=== PATIENT | male | born 1975 | race African-American/Black ===

== ENCOUNTER 2017-10-01 16:48 | Emergency (ER) | payer SELFPAY ==
[~2017-10-01 16:48] MED LIST: FLEXERIL10 MG PO; TRAMADOL50 MG PO
[2017-10-02] MEDS ORDERED: CLEOCIN HCL300 M1 PO (18:20)
[2017-10-02] MEDS ORDERED: POLYTRIM EYE DR10 ML OPH (18:20)
== END 2017-10-01 16:50 | disposition admitted as inpatient to this hospital (09) ==
LOC: ERH 16:48
DX: H57.10 Ocular pain, unspecified eye (principal)
CPT/HCPCS: J1885

== ENCOUNTER 2017-10-02 15:34 | Emergency (ER) | payer OTHER ==
[~2017-10-02] VITALS: Ht 185.4 cm; Wt 97.5 kg
--- NOTE | 2017-10-02 16:00 | ED EYE COMPLAINT ---
History of Present Illness General Chief Complaint: Eye Problems Stated Complaint: L EYE IRRITATION Source: patient Exam Limitations: no limitations Vital Signs & Intake/Output Vital Signs & Intake/Output Vital Signs Date Time Temp Pulse Resp B/P B/P Pulse O2 O2 Flow FiO2 Mean Ox Delivery Rate 10/02 1814 99.1 62 16 150/92 99 Room Air 10/02 1537 97.7 100 16 150/89 97 Room Air Allergies Coded Allergies: NO KNOWN ALLERGIES (12/02/12) Reconcile Medications Clindamycin HCl (Cleocin HCl) 300 MG CAPSULE 1 CAP PO TID PRESEPTAL CELLULITIS CYCLOBENZAPRINE HCL (Flexeril) 10 MG TABLET 1 TAB PO Q8H PRN spasm/pain Avoid operating motor vehicle or heavy machinery Polytrim (Polytrim Eye Drops) 10,000 UNIT-1 MG/ML DROPS 1 GTT OPH Q6 CORNEAL ABRASION TRAMADOL HCL (Tramadol) 50 MG TABLET 1-2 TAB PO Q6P PRN PAIN Triage Note: PT STATES HIS LEFT EYE IT ITCHY AND IS DRAINING PT STATES WHEN HE WAKES IN THE AM HIS EYE IS CRUSTED SHUT. Triage Nurses Notes Reviewed? yes Onset: Gradual Duration: week(s): (1) Timing: no prior history Injury Environment: home Severity: severe Severity Numbers: 9 No Modifying Factors: none Left Eye Associated Symptoms: sensitivity to light, eyelid matting, blurred vision HPI: Patient is a 42-year-old male with no past medical history presenting to the emergency department complaining of left eye redness, pain and discharged has been getting worse for the past one week. He went to the urgent care 4 days ago , diagnosed with conjunctivitis. He was started on erythromycin ointment which worsened symptoms. Patient denies any fevers or chills. Patient does admit to pain when he moves his eye. Positive light sensitivity. No history of similar symptoms in the past. he reports that he's had blurred vision. Denies foreign body sensation. He usually wears glasses to drive and read but has not been using them. Past History Travel History Traveled to [place] past 21 day No Medical History Any Pertinent Medical History? see below for history Neurological: migraine Cardiovascular: hypertension Surgical History Surgical History: non-contributory Psychosocial History What is your primary language Uzbek Tobacco Use: Current Daily Use Daily Tobacco Use Amount/Type: => 5 Cigarettes daily ETOH Use: occasional use Illicit Drug Use: marijuana Family History Hx Contributory? No Review of Systems Review of Systems Constitutional: Reports: no symptoms. Comments Review of systems: See HPI, All other systems negative. Constitutional, no chills fever or weight loss HEENT: no sore throat no congestion Cardiovascular: No chest pain ,palpitation Skin, no jaundice no rashes Respiratory: No dyspnea cough sputum or hemoptysis GI: No nausea no vomiting Muscle skeletal: no back pain, no neck pain, Neurologic: No numbness no confusion Psych: No stress anxiety Immunology: No splenectomy or history of AIDS Physical Exam General Appearance: well developed/nourished, no apparent distress, alert, awake , comfortable General Inspection: periorbital swelling Conjunctiva/Sclera: injected Cornea: examined w/fluorescein EOM: PAIN WITH EXTRAOCULAR EYE MOVEMENTS OF THE LEFT EYE Pupil: normal accommodation, normal pupil, PERRL Anterior Chamber: normal inspection Eye Left 1) diffuse Erythema. No signs of hyphema. General Inspection: normal inspection Eyelid: normal inspection Conjunctiva/Sclera: normal inspection EOM: intact Pupil: normal accommodation, normal pupil, PERRL Anterior Chamber: normal inspection Physical Exam Head: atraumatic Comments: Well-developed well-nourished person in no acute distress HEENT: Pain in the left eye with extraocular eye movements, no nystagmus. Pupils equally round and reactive to light and accommodation. Left conjunctiva is extremely injected. Mattering noted in the eyelashes of the upper and lower eyelid. Mild edema noted in the left upper and lower eyelid. Large corneal abrasion approximately 2 cm in the central aspect of the cornea, aluminated with forcing stain. No signs of ulceration. Unable to appreciate erythema although somewhat difficult secondary to darker skin tone. Nose is atraumatic. External auditory canal and Tympanic membranes clear. Pharynx normal. No swelling or edema. Funduscopic: Somewhat limited secondary to no dilation- no obvious retinal detachment or venous thinking. Neck: Normal inspection Cardiovascular: Regular rate and rhythms no murmurs rubs or gallops, normal JVP Respiratory: No respiratory distress.breath sounds clear to auscultation bilaterally Extremity: No edema Neuro: Alert oriented x3, motor sensory normal, slightly decrease in peripheral mcbride with the left eye secondary to tearing. Skin: No appreciable rash on exposed skin, skin is warm and dry. Psych: Mood and affect is normal, memory and judgment is normal. Progress Differential Diagnosis: corneal abrasion, corneal foreign body, conjunctivitis, ORBITAL CELLULITIS, PERIORBITAL CELLULITIS, CONJUNCTIVITIS, CORNEAL ABRASION, GLAUCOMA, CORNEAL FOREIGN BODY Plan of Care: Orders Procedure Date/time Status BLOOD CULTURE 10/02 1621 Active COMPREHENSIVE METABOLIC PANEL 10/02 1621 Complete CBC WITHOUT DIFFERENTIAL 10/02 1621 Complete Current Medications Sig/Alcon Start time Last Medication Dose Stop Time Status Admin Polymyxin/ 2 GTT ONCE ONE 10/02 1800 CAN Trimethoprim Sulfate 10/02 1800 (Polytrim) Laboratory Tests 10/02/171649: Anion Gap 15, Estimated GFR > 60, BUN/Creatinine Ratio 13.6, Glucose 87, Calcium 10.1, Total Bilirubin 0.6, AST 23, ALT 34, Alkaline Phosphatase 72, Total Protein 8.0, Albumin 5.0, Globulin 3.0, Albumin/Globulin Ratio 1.7, CBC w Diff NO MAN DIFF REQ, RBC 4.93, MCV 96.5 H, MCH 32.4 H, RDW 12.8, MPV 7.7, Gran % 43.2, Lymphocytes % 47.5, Monocytes % 7.7, Eosinophils % 0.9, Basophils % 0.7, Absolute Granulocytes 2.2, Absolute Lymphocytes 2.5, Absolute Monocytes 0.4, Absolute Eosinophils 0, Absolute Basophils 0, PUBS MCHC 33.6 Microbiology 10/02 1802 BLOOD: Blood Culture - RECD 10/02 1649 BLOOD: Blood Culture - RECD Diagnostic Imaging: Viewed by Me: CT Scan. Discussed w/RAD: CT Scan. Radiology Impression: PATIENT: LITTLE PIEDRA PRESENT AGE: 42 PATIENT ACCOUNT NO: [id number] : 74 LOCATION: [facility] ORDERING PHYSICIAN: Miriam MA SERVICE DATE: 10/02/17 EXAM TYPE: CAT - CT ORBITS W IV CONTRAST EXAMINATION: CT ORBIT WITH CONTRAST CLINICAL INFORMATION : Orbital sialitis of left eye. Swelling. Discharge. COMPARISON: None TECHNIQUE: Axial images obtained through the orbits. Coronal and sagittal reformatted images performed at CT scanner. DLP: 252.38 mGy-cm FINDINGS: There is mild preseptal edema around the left orbit and inferior left forehead. The retrobulbar are structures are normal. The orbital globe is normal. No focal fluid collection. No air in the soft tissue. The visualized vascular structures demonstrate normal enhancement. Partially visualized intracranial structures are normal. The paranasal sinuses are normally aerated. The visualized mastoid air cells and middle ear cavities are normal. IMPRESSION: Preseptal edema at the left orbit. No retrobulbar abnormality. DICTATED BY: Hugo Ibrahim MD DATE/TIME DICTATED:10/02/171757 INPATIENT SERVICES RN:ERIN DATE/TIME TRANSCRIBED:1757 CONFIDENTIAL, DO NOT COPY WITHOUT APPROPRIATE AUTHORIZATION. < Electronically signed in Other Vendor System> SIGNED BY: Hugo Ibrahim MD 1805 Comments: 10/02/2017 5:50:55 PM patient having significant relief after tetracaine drops. Patient does have large corneal abrasion on exam. No signs of ulceration. Still concerning for orbital cellulitis, patient also go for CT despite being afebrile and no elevation in white blood cell count. 10/02/2017 6:21:49 PM patient informed of imaging results. No signs of orbital cellulitis. No definitive signs of preseptal cellulitis, just showing edema. Likely from irritation. Patient does have a large corneal abrasion on exam. Likely contributing to patient's symptoms. Patient will be started on oral and topical antibiotics. He will follow up with ophthalmology in the next 1-2 days. Educated on signs and symptoms should return. Patient nontoxic. Departure Departure Time of Disposition: 1816 Disposition: HOME OR SELF CARE Condition: Stable Clinical Impression Primary Impression: Corneal abrasion Qualifiers: Encounter type: initial encounter Laterality: left Qualified Code: S05.02XA - Injury of conjunctiva and corneal abrasion without foreign body, left eye, initial encounter Secondary Impressions: Preseptal cellulitis Referrals: Patient Has No Primary Care Dr (PCP/Family) Adi STEVENSON,Kendall Ramos Additional Instructions: Follow-up with ophthalmology in the next 1-2 days. Use Polytrim drops as prescribed help with corneal abrasion. Take oral clindamycin as directed to help with infection. Take [id number] Motrin and Tylenol as directed to help with any pain. Apply warm compresses to affected area. Return for any worsening symptoms or concerns. Departure Forms: Customer Survey General Discharge Information Prescriptions: Current Visit Scripts Clindamycin HCl (Cleocin HCl) 1 CAP PO TID #30 CAP Polytrim (Polytrim Eye Drops) 1 GTT OPH Q6 #10 ML
[2017-10-02 17:11] LABS: ABSOLUTE BASOPHIL COUNT 0 /CUMM (0.0-0.2); ABSOLUTE EOSINOPHIL COUNT 0 /CUMM (0.0-0.7); ABSOLUTE GRANULOCYTE CT 2.2 /CUMM (1.4-6.5); ABSOLUTE LYMPH COUNT 2.5 /CUMM (1.2-3.4); ABSOLUTE MONOCYTE COUNT 0.4 /CUMM (0.10-0.60); BASOPHIL % 0.7 % (0.0-2.0); EOSINOPHIL % 0.9 % (0-5); GRANULOCYTE % 43.2 % (42.2-75.2); HEMATOCRIT 47.6 % (42-52); MEAN CORPUSCULAR HGB 32.4 PG (27.0-31.0); MEAN CORPUSCULAR HGB CONC 33.6 G/DL (33.0-37.0); MEAN CORPUSCULAR VOLUME 96.5 FL (80.0-94.0); MEAN PLATELET VOLUME 7.7 FL (7.4-10.4); PLATELET COUNT 275 /CUMM (130-400); RBC DISTRIBUTION WIDTH 12.8 % (11.5-14.5); RED BLOOD CELL CT 4.93 /CUMM (4.70-6.10); WHITE BLOOD CELL COUNT 5.2 /CUMM (4.8-10.8)
--- NOTE | 2017-10-02 18:06 | CT SCAN REPORT ---
EXAMINATION: CT ORBIT WITH CONTRAST CLINICAL INFORMATION: Orbital sialitis of left eye. Swelling. Discharge. COMPARISON: None TECHNIQUE: Axial images obtained through the orbits. Coronal and sagittal reformatted images performed at CT scanner. DLP: 252.38 mGy-cm FINDINGS: There is mild preseptal edema around the left orbit and inferior left forehead. The retrobulbar are structures are normal. The orbital globe is normal. No focal fluid collection. No air in the soft tissue. The visualized vascular structures demonstrate normal enhancement. Partially visualized intracranial structures are normal. The paranasal sinuses are normally aerated. The visualized mastoid air cells and middle ear cavities are normal. IMPRESSION: Preseptal edema at the left orbit. No retrobulbar abnormality.
[2017-10-02 18:14] VITALS: BP 150/92
[2017-10-02] MEDS ORDERED: POLYTRIM EYE DR10 ML OPH (18:20)
[2017-10-02] MEDS ORDERED: CLEOCIN HCL300 M1 PO (18:20)
== END 2017-10-02 18:46 ==
LOC: ERH 15:34
PROVIDERS: Physician Assistant
DX: S05.02XA Injury of conjunctiva and corneal abrasion without foreign body, left eye, initial encounter (principal); H05.012 Cellulitis of left orbit; X58.XXXA Exposure to other specified factors, initial encounter; Y92.9 Unspecified place or not applicable; Y93.9 Activity, unspecified
CPT/HCPCS: 87040; J3490